=== PATIENT | male | born 1970 | race Caucasian/White ===

== ENCOUNTER 2018-05-01 09:59 | Day surgery (SDC) | payer OTHER, MEDICAID ==
[~2018-05-01 09:59] MED LIST: SUCCINYLCHOLINE CHLORIDE 100 MG/5 ML SYG IV
[2018-05-01] MEDS ORDERED: PROPOFOL 20 ML (10:44)
[2018-05-01] MEDS ORDERED: CEFAZOLIN 1 GM INJ (10:44)
[2018-05-01] MEDS ORDERED: ROCURONIUM 50 MG INJ (10:44)
[2018-05-01] MEDS ORDERED: NEOSTIGMINE 3 MG/3 ML SYRINGE (10:44)
[2018-05-01] MEDS ORDERED: GLYCOPYRROLATE 0.4 MG INJ (10:44)
[2018-05-01] MEDS ORDERED: FENTAnyl 50 MCG/ML VIAL (10:45)
[2018-05-01] MEDS ORDERED: ONDANSETRON 4 MG INJ (10:45)
[2018-05-01] MEDS ORDERED: DEXAMETHASONE 4 MG/ML 1 ML INJ (10:45)
[2018-05-01] MEDS ORDERED: MIDAZOLAM 1 MG/ML 2 ML INJ (10:45)
[2018-05-01] MEDS ORDERED: EPHEDrine SULFATE 50 MG/5 ML SYG IV (11:00)
[2018-05-01] MEDS ORDERED: MIDAZOLAM 1 MG/ML 2 ML INJ IV (11:00)
[2018-05-01] MEDS ORDERED: TRIMETHOBENZAMIDE 100 MG/ML VIAL IM (11:00)
[2018-05-01] MEDS ORDERED: LABETALOL HCL 20MG INJ IV (11:00)
[2018-05-01] MEDS ORDERED: ALBUTEROL 0.083% (NEB) 2.5 MG/3 ML AMP HHN (11:00)
[2018-05-01] MEDS ORDERED: MEPERIDINE 25 MG INJ IV (11:00)
[2018-05-01] MEDS ORDERED: FENTAnyl 50 MCG/ML VIAL IV ×3 (11:00)
[2018-05-01] MEDS ORDERED: ONDANSETRON 4 MG INJ IV (11:00)
[2018-05-01] MEDS ORDERED: hydrALAzine 20 MG INJ IV (11:00)
[2018-05-01] MEDS ORDERED: DIPHENHYDRAMINE 50 MG INJ IV (11:00)
[2018-05-01] MEDS ORDERED: IPRATROPIUM (NEB) 0.5 MG/2.5 ML AMP HHN (11:00)
[2018-05-01] MEDS ORDERED: HYDROmorphONE 1 MG/5 ML IV SYRINGE IV ×3 (11:00)
[2018-05-01] MEDS ORDERED: OXYCODONE/ACETAMINOPHEN (5/325) TAB PO (11:00)
[2018-05-01] MEDS: LIDOCAINE 1%/EPI 30 ML INJ (12:02)
[2018-05-01] MEDS: OXYCODONE/ACETAMINOPHEN (5/325) TAB PO (13:27)
== END 2018-05-01 13:40 | disposition home or self-care (01) ==
LOC: SDS 09:59
DX: K13.21 Leukoplakia of oral mucosa, including tongue (principal); R23.4 Changes in skin texture; F20.9 Schizophrenia, unspecified; F17.200 Nicotine dependence, unspecified, uncomplicated
CPT/HCPCS: 41110; 88305